=== PATIENT | female | born 2000 | race Caucasian/White ===

== ENCOUNTER 2022-06-27 22:32 | Observation (INO) | payer OTHER, SELFPAY ==
[2022-06-27 23:49] VITALS: BMI 26.6
[2022-06-27] MEDS ORDERED: Ondansetron PF 4 MG/2 ML Vial IVP PRN (23:51)
[2022-06-27] MEDS ORDERED: Promethazine HCl 25 MG/ML VIAL IM PRN (23:51)
[2022-06-27] MEDS ORDERED: hydrALAZINE 20 MG/ML VIAL SLOW IVP PRN (23:51)
[2022-06-28] MEDS: Lactated Ringer's 1,000 ML IV SCH ×2 (00:25→08:56)
[2022-06-28 00:41] LABS: Hemoglobin 10.6 g/dL (12.0-15.5); Mean Corpuscular HGB CONC 35.1 g/dL (32.0-36.0); Mean Corpuscular Hemoglobin 29.5 pg (27.0-33.0); Mean Corpuscular Volume 84.1 fl (81.6-98.3); Mean Platelet Volume 11.5 fl (7.4-10.4); Platelet Count 180 10x3/uL (150-450); RBC Distribution Width 12.7 % (11.5-14.5); Red Blood Cell (RBC) Count 3.59 10x6/uL (3.90-5.03); White Blood Cell (WBC) Count 12.9 10x3/uL (3.5-10.5)
[2022-06-28] MEDS: Morphine 4 MG/ML VIAL SLOW IVP PRN ×3 (00:55→10:51)
[2022-06-28 09:52] LABS: #Eosinphils 0.1 10x3/uL (0.0-0.5); #Monocytes 0.9 10x3/uL (0.0-1.1); #Neutrophils 5.8 10x3/uL (1.5-8.4); %Basophils 0.2 % (0.0-2.0); %Eosinophils 0.8 % (0.0-6.0); %Lymphocytes 28.1 % (18.0-47.0); %Monocytes 9.3 % (0.0-10.0); %Neutrophils 61.2 % (40.0-75.0); Mean Corpuscular Hemoglobin 29.8 pg (27.0-33.0); Mean Corpuscular Volume 87.5 fl (81.6-98.3); Mean Platelet Volume 11.7 fl (7.4-10.4); Platelet Count 174 10x3/uL (150-450); RBC Distribution Width 12.8 % (11.5-14.5); Red Blood Cell (RBC) Count 3.36 10x6/uL (3.90-5.03); White Blood Cell (WBC) Count 9.5 10x3/uL (3.5-10.5)
[2022-06-28 11:15] VITALS: BP 118/54; TEMP 98.7
== END 2022-06-28 13:40 | disposition home or self-care (01) ==
LOC: CSHERS 22:32 → CSHPED 22:46
PROVIDERS: ADMIT Obstetrics & Gynecology; ATTEND Obstetrics & Gynecology
DX: D62 Acute posthemorrhagic anemia (principal); K66.1 Hemoperitoneum; N83.209 Unspecified ovarian cyst, unspecified side; Z87.891 Personal history of nicotine dependence; Z79.899 Other long term (current) drug therapy
CPT/HCPCS: 36415; 86850; 86900; 86901; 96361; 96374; 96376; G0378; J2270; J7120